=== PATIENT | male | born 1960 | race Caucasian/White ===

== ENCOUNTER 2017-01-02 06:35 | Outpatient (CLI) ==
[2016-03-20 13:22] VITALS: BMI 36.0
[2017-01-02 06:53] LABS: BASOPHILS % (AUTO) 0.3 % (0.0-3.0); EOSINOPHILS # (AUTO) 0.1 K/ul (0.0-0.7); EOSINOPHILS % (AUTO) 1.9 % (0.0-7.0); HEMATOCRIT 42.4 % (42.0-52.0); HEMOGLOBIN 14.3 g/dl (14.0-18.0); IMMATURE GRANULOCYTE % (AUTO) 0.2 % (0.0-5.0); LYMPHOCYTES # (AUTO) 2.8 K/uL (0.60-3.4); LYMPHOCYTES % (AUTO) 47.3 (10.0-50.0); MEAN CORPUSCULAR HEMOGLOBIN 30.6 pg (27.0-31.0); MEAN CORPUSCULAR HGB CONC 33.7 (31.8-35.4); MEAN CORPUSCULAR VOLUME 90.6 fl (80.0-94.0); MONOCYTES # (AUTO) 0.9 K/uL (0.4-2.0); NEUTROPHILS # (AUTO) 2.1 K/ul (2.0-6.9); NEUTROPHILS % (AUTO) 35.3; PLATELET COUNT 244 10^3/uL (140-440); RED BLOOD COUNT 4.68 10^6/ul (4.70-6.10); WHITE BLOOD COUNT 5.81 K/ul (4.2-10.2)
[2017-01-02 07:20] LABS: ALBUMIN 3.7 g/dL (3.4-5.0); ALBUMIN/GLOBULIN RATIO 1.03; ANION GAP 12.3; BILIRUBIN,TOTAL 0.44 mg/dL (0.00-1.20); BUN/CREATININE RATIO 13.63; CREATININE 0.88 mg/dL (0.60-1.10); POTASSIUM 4.3 mmol/L (3.5-5.1); TOTAL PROTEIN 7.3 g/dL (6.4-8.2)
== END 2017-01-02 06:36 | disposition home or self-care (01) ==
LOC: LAB 06:35
PROVIDERS: ATTEND Family Medicine
DX: K76.0 Fatty (change of) liver, not elsewhere classified (principal); R74.0 Nonspecific elevation of levels of transaminase and lactic acid dehydrogenase [LDH]; E78.5 Hyperlipidemia, unspecified; I10 Essential (primary) hypertension
CPT/HCPCS: 36415; 80053; 80061; 82977; 85025

== ENCOUNTER 2017-07-08 07:14 | Outpatient (CLI) ==
[2016-03-20 13:22] VITALS: BMI 36.0
[2017-07-08 07:36] LABS: BASOPHILS % (AUTO) 0.4 % (0.0-3.0); EOSINOPHILS # (AUTO) 0.1 K/ul (0.0-0.7); EOSINOPHILS % (AUTO) 1.4 % (0.0-7.0); HEMATOCRIT 41.8 % (42.0-52.0); HEMOGLOBIN 14.5 g/dl (14.0-18.0); IMMATURE GRANULOCYTE % (AUTO) 0.3 % (0.0-5.0); MEAN CORPUSCULAR HEMOGLOBIN 31.3 pg (27.0-31.0); MEAN CORPUSCULAR HGB CONC 34.7 (31.8-35.4); MEAN CORPUSCULAR VOLUME 90.1 fl (80.0-94.0); MONOCYTES # (AUTO) 1.1 K/uL (0.4-2.0); NEUTROPHILS # (AUTO) 2.7 K/ul (2.0-6.9); NEUTROPHILS % (AUTO) 38.9; PLATELET COUNT 233 10^3/uL (140-440); RED BLOOD COUNT 4.64 10^6/ul (4.70-6.10); WHITE BLOOD COUNT 6.95 K/ul (4.2-10.2)
[2017-07-08 07:58] LABS: ALBUMIN 3.6 g/dL (3.4-5.0); ALBUMIN/GLOBULIN RATIO 1.03; ANION GAP 11.8; BILIRUBIN,TOTAL 0.33 mg/dL (0.00-1.20); BUN/CREATININE RATIO 12.5; CALCIUM 9.1 mg/dL (8.2-10.2); CHOL/HDL RATIO 5.5 (4.5-6.4); CREATININE 0.88 mg/dL (0.60-1.10); POTASSIUM 3.8 mmol/L (3.5-5.1); TOTAL PROTEIN 7.1 g/dL (6.4-8.2)
[2017-07-08 14:33] LABS: BILIRUBIN,URINE Negative (NEGATIVE); KETONES,URINE Negative (NEGATIVE); LEUKOCYTE ESTERASE ,URINE Negative (NEGATIVE); NITRITE,URINE Negative (NEGATIVE); PROTEIN,URINE Negative (NEGATIVE); URINE, BLOOD Negative (NEGATIVE)
[2017-07-08 14:37] LABS: ADD URINE MICROSCOPIC NO
== END 2017-07-08 07:15 | disposition home or self-care (01) ==
LOC: LAB 07:14
PROVIDERS: ATTEND Family Medicine
DX: E78.5 Hyperlipidemia, unspecified (principal); I10 Essential (primary) hypertension
CPT/HCPCS: 36415; 80053; 80061; 81001; 85025

== ENCOUNTER 2018-08-11 11:00 | Emergency (ER) | payer OTHER ==
[2018-08-11 11:03] VITALS: BP 154/94; TEMP 97.9; BMI 34.0
[2018-08-11] MEDS ORDERED: LIDOCAINE HCL 1% SDV SUBCUT STA ×2 (11:25→12:45)
[2018-08-11] MEDS ORDERED: ROCEPHIN IM STA (11:55)
[2018-08-11] MEDS ORDERED: LIDOCAINE HCL 1% SDV IM STA (11:55)
[2018-08-11] MEDS ORDERED: ZOFRAN 4 MG/2 ML IM STA (11:55)
[2018-08-11] MEDS ORDERED: MORPHINE 2 MG/ML SYRINGE IM STA (11:55)
--- NOTE | 2018-08-11 12:02 | DI ---
EXAM: Radiographs, left third finger HISTORY: Initial presentation for left third finger trauma. COMPARISON: None available. TECHNIQUE: Three views. FINDINGS/IMPRESSION: Significantly comminuted fracture involving the articular surface of the third distal phalanx noted w ith adjacent soft tissue injury. No dislocation identified.
[2018-08-11] MEDS ORDERED: LIDOCAINE HCL 1% SDV ONE (12:51)
--- NOTE | 2018-08-11 13:12 | ED.PDOC ---
General ED Provider: Dr. CRISTY REHMAN Chief Complaint: Finger Laceration Stated Complaint: right middle finger laceration Time Seen by Physician: 11:11 (see photos) Mode of Arrival: Walk-In Information Source: Patient Exam Limitations: No limitations Primary Care Provider: TORIE KAM Nursing and Triage Documentation Reviewed and Agree: Yes Does patient meet sepsis criteria?: Yes If yes, has appropriate treatment been initiated?: No System Inflammatory Response Syndrome: Not Applicable (see photos) Sepsis Protocol: For patient's 13 years and over: Temp is 96.8 and below OR 101 and greater Pulse >90 BPM Resp >20/minute Acutely Altered Mental Status Are patient's symptoms suggestive of a new infection, such as: -Pneumonia -Skin, Soft Tissue -Endocarditis -UTI -Bone, Joint Infection -Implantable Device -Acute Abdominal Infection -Wound Infection -Meningitis -Blood Stream Catheter Infection -Unknown Skin Complaint Exam - Lac/Torso/Upper Ext. Complaint/Exam Location of Injury: Right (middle finger see photos) Mechanism of Injury: Laceration Onset/Duration: 1 hour ago Symptoms Are: Still present Initial Severity: Mild Current Severity: Mild Alleviating: None Associated Signs and Symptoms: Denies: Fever, Chills, Erythema, Numbness, Tingling Differential Diagnoses: Laceration Review of Systems - Review Of Systems Constitutional: Reports: No symptoms Eyes: Reports: No symptoms Ears, Nose, Mouth, Throat: Reports: No symptoms Respiratory: Reports: No symptoms Cardiac: Reports: No symptoms GI: Reports: No symptoms : Reports: No symptoms Musculoskeletal: Reports: No symptoms Skin: Reports: Other (laceration) Neurological: Reports: No symptoms Endocrine: Reports: No symptoms Hematologic/Lymphatic: Reports: No symptoms All Other Systems: Reviewed and Negative Past Medical History - Past Medical History Previously Healthy: Yes Endocrine: Reports: None Cardiovascular: Reports: None Respiratory: Reports: None Hematological: Reports: None Gastrointestinal: Reports: None Genitourinary: Reports: None Neuro/Psych: Reports: None Musculoskeletal: Reports: None Cancer: Reports: None - Surgical History General Surgical History: Reports: None - Family History Family History: Reports: None - Social History Smoking Status: Current every day smoker, Heavy tobacco smoker Hx Substance Use: No Alcohol Screening: None Physical Exam - Physical Exam Appearance: Well-appearing, No pain distress, Well-nourished Eyes: KRYSTINA, EOMI, Conjunctiva clear ENT: Ears normal, Nose normal, Oropharynx normal Respiratory: Airway patent, Breath sounds clear, Breath sounds equal, Respirations nonlabored Cardiovascular: RRR, Pulses normal, No rub, No murmur GI/: Soft, Nontender, No masses, Bowel sounds normal, No Organomegaly Musculoskeletal: Normal strength, ROM intact, No edema, No calf tenderness Skin: Warm, Dry, Normal color Neurological: Sensation intact, Motor intact, Reflexes intact, Cranial nerves intact, Alert, Oriented Psychiatric: Affect appropriate, Mood appropriate Interpretation - Radiology Interpretation Radiology Interpretation By: Radiologist Radiology Results: Positive (open finger fracture) Procedures - Laceration/Wound Repair No standard instances Wound Description: Linear Wound Length (cm): 1cm Wound Width: 3mm Wound Depth: 3mm Wound Explored: Contaminated (saw ) Wound Irrigated: No Wound Prep: Saline, Hibiclens Anesthesia: Lidocaine (plain 5ml) Undermining: Moderate Wound Margins: Revised, Vermilion border aligned Wound Repaired With: Sutures Suture Size and Type: 3 prolene Number of Sutures: 12 Type of Splint Applied: metal per mitchell MD Physician Notification - Case Discussed Physician Notified: MITCHELL Time of Notification: 13:13 (STATED PT WILL BE SEEN BY DOCTOR QUICK IN AM) Critical Care Note - Critical Care Note Total Time (mins): 0 Course - Course Orders, Labs, Meds: Orders Category Date Time Status Ceftriaxone Sodium [Rocephin] MEDS 08/11/18 11:55 Discontinued 1 gm IM ONCE STA Lidocaine HCl/Pf [Lidocaine HCl 1% Sdv] MEDS 08/11/18 11:55 Discontinued 2.1 ml IM ONCE STA Lidocaine HCl/Pf [Lidocaine HCl 1% Sdv] MEDS 08/11/18 12:51 Discontinued 5 ml .ROUTE .STK-MED ONE Lidocaine HCl/Pf [Lidocaine HCl 1% Sdv] MEDS 08/11/18 11:25 Discontinued 5 ml SUBCUT ONCE STA Lidocaine HCl/Pf [Lidocaine HCl 1% Sdv] MEDS 08/11/18 12:45 Discontinued 5 ml SUBCUT ONCE STA Morphine Sulfate [Morphine 2 mg/ml Syringe] MEDS 08/11/18 11:55 Discontinued 4 mg IM ONCE STA Ondansetron HCl/Pf [Zofran 4 mg/2 ml] MEDS 08/11/18 11:55 Discontinued 4 mg IM ONCE STA FINGER(S), LEFT MIN 2V Stat RADS 08/11/18 11:25 Completed Medications Discontinued Medications Generic Name Dose Route Start Last Admin Trade Name Davi PRN Reason Stop Dose Admin Ceftriaxone Sodium 1 gm 08/11/18 11:55 08/11/18 12:09 Rocephin IM 08/11/18 11:56 1 gm ONCE STA Administration Lidocaine HCl 5 ml 08/11/18 11:25 08/11/18 12:40 Lidocaine Hcl 1% Sdv SUBCUT 08/11/18 11:26 5 ml ONCE STA Administration Lidocaine HCl 2.1 ml 08/11/18 11:55 08/11/18 12:10 Lidocaine Hcl 1% Sdv IM 08/11/18 11:56 2.1 ml ONCE STA Administration Lidocaine HCl 5 ml 08/11/18 12:45 Lidocaine Hcl 1% Sdv SUBCUT 08/11/18 12:46 ONCE STA Morphine Sulfate 4 mg 08/11/18 11:55 08/11/18 12:08 Morphine 2 Mg/Ml Syringe IM 08/11/18 11:56 4 mg ONCE STA Administration Ondansetron HCl 4 mg 08/11/18 11:55 08/11/18 12:09 Zofran 4 Mg/2 Ml IM 08/11/18 11:56 4 mg ONCE STA Administration Vital Signs: Temp Pulse Resp BP Pulse Ox 08/11/18 11:01 97.9 F 87 20 154/94 H 95 Departure - Departure Time of Disposition: 13:14 Disposition: HOME SELF-CARE Discharge Problem: Laceration of finger Instructions: Laceration (ED) Condition: Good Pt referred to PMD for follow-up: Yes IPMP verified?: No Additional Instructions: Please call your Family Physician as soon as possible to schedule a follow-up appointment. Prescriptions: Amoxicillin 500 mg PO Q8HR #21 tablet Hydrocodone/Acetaminophen [[place] 10-325 Tablet] 1 each PO Q8HR #7 tablet Allergies/Adverse Reactions: Allergies No Known Allergies Allergy (Verified 08/11/18 11:03) Home Medications: Ambulatory Orders Venlafaxine HCl [Effexor] 75 mg PO DAILY 06/07/17 Amoxicillin 500 mg PO Q8HR #21 tablet 08/11/18 Hydrocodone/Acetaminophen [[place] 10-325 Tablet] 1 each PO Q8HR #7 tablet Transfer Form Completed: Yes
== END 2018-08-11 13:27 | disposition home or self-care (01) ==
LOC: ED 11:00
DX: S62.633B Displaced fracture of distal phalanx of left middle finger, initial encounter for open fracture (principal); W29.8XXA Contact with other powered hand tools and household machinery, initial encounter; F17.210 Nicotine dependence, cigarettes, uncomplicated
CPT/HCPCS: 96372; 99283

== ENCOUNTER 2018-10-20 12:44 | Outpatient (CLI) ==
[2018-10-20] MEDS ORDERED: ALBUTEROL 0.083% NEB NEB STA (13:09)
== END 2018-10-20 12:45 | disposition home or self-care (01) ==
LOC: CAR 12:44
PROVIDERS: ATTEND Nurse Practitioner Family
DX: R06.2 Wheezing (principal); Z72.0 Tobacco use

== ENCOUNTER 2018-10-31 08:02 | Outpatient (CLI) | END 2018-10-31 08:03 | disposition home or self-care (01) | LOC: RHC-LAB 08:02 | PROVIDERS: ATTEND Nurse Practitioner Family | DX: R94.5 Abnormal results of liver function studies (principal); E78.5 Hyperlipidemia, unspecified | CPT/HCPCS: 36415; 80053; 80061 ==

== ENCOUNTER 2019-03-13 06:51 | Outpatient (CLI) | END 2019-03-13 06:52 | disposition home or self-care (01) | LOC: LAB 06:51 | PROVIDERS: ATTEND Nurse Practitioner Family | DX: E78.5 Hyperlipidemia, unspecified (principal) | CPT/HCPCS: 36415; 80053; 80061 ==

== ENCOUNTER 2019-04-10 15:52 | Outpatient (CLI) | END 2019-04-10 15:53 | disposition home or self-care (01) | LOC: RHC-LAB 15:52 | PROVIDERS: ATTEND Nurse Practitioner Family | DX: R53.83 Other fatigue (principal) | CPT/HCPCS: 36415; 82306; 82607; 84403 ==